=== PATIENT | male | born 2000 | race Two or more races ===

== ENCOUNTER 2024-08-17 19:32 | Emergency (ER) | payer MEDICAID, SELFPAY ==
[2024-08-17 19:32] VITALS: BMI 32.8
[2024-08-17 20:06] VITALS: BP 144/79; PULSE 85; RESP 18; TEMP 37.1; O2SAT 95
--- NOTE | 2024-08-17 20:33 | PD.EDEAR ---
ED Ear RME/HPI General Chief complaint: Ear Stated complaint: RIGHT EAR INFECTION Time Seen by Provider: 08/17/24 20:13 Arrival date/time: 08/17/24 19:32 RME / HPI RME / HPI Narrative: 23-year-old male presents to the ED with complaint of right ear pain, thick discharge/drainage, ear plugging and popping, feeling feverish and chilled, and right sided neck pain for the past 2 days. He has a past medical history o tympanostomy tubes on the right that were placed in 2014. It is unknown if these tubes are still in existence in the right TM. Related Data Previous Rx's ?Medication ?Instructions ?Recorded ciprofloxacin HCl 500 mg tablet 500 mg PO BID OE #20 tabs 08/17/24 meloxicam 15 mg tablet 15 mg PO QDAY #10 tabs 08/17/24 ofloxacin 0.3 % ear drops 10 drp otic (ear) Q12H Otitis 08/17/24 externa 14 days #10 mL Allergies Allergy/AdvReac Type Severity Reaction Status Date / Time No Known Allergies Allergy Verified 08/17/24 19:34 Review of Systems Review of Systems Systems Reviewed: All systems reviewed, normal except as documented Past Medical History Social History SMOKING STATUS: Never smoker ED Exam Narrative Physical exam: Pleasant 23-year-old male, no acute distress, left TM normal, right canal with thick white matter in the canal with mild erythema noted to the canal. Unable to visualize right TM due to thick, white, moist debris. Nares are pale and boggy, pharynx without erythema. No anterior cervical chain adenopathy. No posterior cervical chain adenopathy. No mastoid tenderness. Lungs are clear, regular rate and rhythm without murmurs. Course Course Course Narrative: 23-year-old male presents to the ED with complaint of right ear pain, thick discharge/drainage, ear plugging and popping, feeling feverish and chilled, and right sided neck pain for the past 2 days. He has a past medical Pleasant 23-year-old male, no acute distress, left TM normal, right canal with thick white matter in the canal with mild erythema noted to the canal. Unable to visualize right TM due to thick, white, moist debris. Nares are pale and boggy, pharynx without erythema. No anterior cervical chain adenopathy. No posterior cervical chain adenopathy. No mastoid tenderness. Lungs are clear, regular rate and rhythm without murmurs. Patient was given ibuprofen 800 mg and Cipro 500 mg p.o. x 1. He would to be discharged home with prescriptions for Cipro 500 mg 1 tab p.o. twice daily as well as ofloxacin otic suspension, 10 drops in right ear twice daily. He was advised to follow-up with his primary care physician for referral to an regional clinical research associate for any ongoing problems with the right ear. Quality Measures none Orders Category Date Time Status Ciprofloxacin HCl [Ciprofloxacin] Med 08/17/24 20:42 Discontinued 500 mg PO X1 ONE Ibuprofen Tab [Motrin Tab] Med 08/17/24 20:38 Discontinued 800 mg PO X1 ONE Vital Signs Vital signs: Vital Signs Temperature 98.8 F 08/17/24 20:06 Pulse Rate 85 08/17/24 20:06 Respiratory Rate 18 08/17/24 20:06 Blood Pressure 144/79 H 08/17/24 20:06 Pulse Oximetry (%) 95 08/17/24 20:06 Oxygen Delivery Method Room Air 08/17/24 20:06 Ear MDM Narrative MDM Narrative:: 23-year-old male presents to the ED with complaint of right ear pain, thick discharge/drainage, ear plugging and popping, feeling feverish and chilled, and right sided neck pain for the past 2 days. He has a past medical Pleasant 23-year-old male, no acute distress, left TM normal, right canal with thick white matter in the canal with mild erythema noted to the canal. Unable to visualize right TM due to thick, white, moist debris. Nares are pale and boggy, pharynx without erythema. No anterior cervical chain adenopathy. No posterior cervical chain adenopathy. No mastoid tenderness. Lungs are clear, regular rate and rhythm without murmurs. Patient was given ibuprofen 800 mg and Cipro 500 mg p.o. x 1. He would to be discharged home with prescriptions for Cipro 500 mg 1 tab p.o. twice daily as well as ofloxacin otic suspension, 10 drops in right ear twice daily. He was advised to follow-up with his primary care physician for referral to an regional clinical research associate for any ongoing problems with the right ear. Patient data External records reviewed:: None Clinical information provided by:: patient Social determinants that could affect healthcare access:: none Patient has the following chronic illnesses:: N/A How is presenting disease/condition affected by chronic disease/condition?: no chronic disease Evaluation data The following diagnostics were reviewed and interpreted by me:: other (specify) (N/A) Lab and/or radiology exams considered but not ordered:: N/A Interpretation Summary: N/A Medications / Prescriptions Medications or Prescriptions considered but not ordered:: N/A Medication administrations:: Medication Administration History Discontinued Medications Ciprofloxacin (Ciprofloxacin Hcl 250 Mg Tablet) 500 mg PO X1 ONE Stop: 08/17/24 20:43 Last Admin: 08/17/24 21:03 Dose: 500 mg Documented By: JW Ibuprofen (Ibuprofen Tab 400 Mg Tablet) 800 mg PO X1 ONE Stop: 08/17/24 20:39 Last Admin: 08/17/24 21:03 Dose: 800 mg Documented By: JW Motrin 800 mg p.o. and Cipro 500mg PO prior to discharge. Consultations Consultation(s) initiated? (list below): No Diagnosis Ear Differential Diagnosis: otitis externa, otitis media, foreign body in ear, ruptured TM and cerumen impaction Most likely diagnosis given after review of the tests above:: Right OE with possible OM. Admission Indicated Admission indicated?: not indicated Admission Request Was there a request for admission?: No Disposition Plan Disposition Plan: Discharge Discharge Attestation Discharge Attestation: The patient and all family members were given an opportunity to ask questions and understood the discharge instructions. Discharge instructions specifically effects, indications for sooner follow up or return to the emergency department, and the expected course of current diagnosis. Patient condition: Stable Discharge Plan Plan Patient Disposition: HOME (Self Care) Discharge Disposition comment: Stable Prescriptions/Referrals Prescriptions/Med Rec: New ofloxacin 0.3 % drops 10 drp otic (ear) Q12H 14 Days Qty: 10 0RF ciprofloxacin HCl 500 mg tablet 500 mg PO BID Qty: 20 0RF meloxicam 15 mg tablet 15 mg PO QDAY Qty: 10 0RF Problem List Clinical Impression: Otitis externa Patient/Caregiver Discharge Instructions Education Materials: ED External Ear Infection (Adult) Additional Instructions: Take the antibiotics as prescribed and complete the course even though you may be feeling better. Follow-up with your primary care physician for referral to an regional clinical research associate for recurring problems with the right ear. Follow-up with your primary care physician in 24 to 48 hours. Return to the ED for any new or worsening symptoms. Print Language: Latvian Stand Alone Forms: [facility] Award Info., Patient Portal Info Letter PA/SALES TRAINING REPRESENTATIVE Supervising Physician PA/SALES TRAINING REPRESENTATIVE Supervising Physician: Dr. BYRD
[2024-08-17] MEDS: CIPROFLOXACIN HCL 250 MG TABLET 500 MG PO (21:03)
[2024-08-17] MEDS: IBUPROFEN TAB 400 MG TABLET 800 MG PO (21:03)
== END 2024-08-17 21:41 | disposition home or self-care (01) ==
LOC: SERX 21:15
PROVIDERS: Emergency Provider Emergency Medicine
DX: H60.91 Unspecified otitis externa, right ear (principal)
CPT/HCPCS: 99282; A9270